=== PATIENT | male | born 1960 | race Hispanic/Latino ===

== ENCOUNTER → 2018-12-22 | Outpatient (CLI) | payer OTHER ==
[~2018-12-22] MED LIST: ASPI-1005 PO; ATOR20TA65 PO; CALC-483 PO; FISH OIL PO; IOHEXOL 350 MG/ML 100ML INFUS..BTL IV ONE; LOSA25TA41 PO; METO25 PO; MULT-1259 PO; NITR0.4T SL; PRAS10TA6 PO
== END | disposition home or self-care (01) ==
LOC: RAH 08:24
PROVIDERS: ATTEND Family Medicine
DX: I77.811 Abdominal aortic ectasia (principal); N20.0 Calculus of kidney; N28.1 Cyst of kidney, acquired; M25.78 Osteophyte, vertebrae; K59.00 Constipation, unspecified; I70.0 Atherosclerosis of aorta; Z90.49 Acquired absence of other specified parts of digestive tract
CPT/HCPCS: 74174; Q9967

== ENCOUNTER 2021-01-06 10:57 | Observation (INO) | payer OTHER ==
[~2021-01-06] VITALS: Ht 175.3 cm; Wt 87.3 kg
[~2021-01-06 10:57] MED LIST changes: +ATEN25TA PO; -ATOR20TA65 PO; -IOHEXOL 350 MG/ML 100ML INFUS..BTL IV ONE; -LOSA25TA41 PO; -METO25 PO; -PRAS10TA6 PO; +ROSU20TA31 PO; +TICA60TA PO
[2021-01-06 11:13] LABS: BASOPHILS % (AUTO) 0.3 % (0.0-5.0); EOSINOPHILS % (AUTO) 0.1 % (0.0-8.0); HEMATOCRIT 45.3 % (42-54); LYMPHOCYTES % (AUTO) 20.2 % (21.0-51.0); MEAN CORPUSCULAR HGB CONC 34.7 g/dL (32.0-36.0); MEAN CORPUSCULAR VOLUME 89.5 fL (79-99); MONOCYTES % (AUTO) 9.3 % (3.0-13.0); PLATELET COUNT (AUTO) 234 K/uL (130-400); RED BLOOD CELL COUNT(AUTO) 5.06 MIL/uL (4.50-6.20); RED CELL DISTRIBUTION WIDTH 13.2 % (11.0-15.5); WHITE BLOOD COUNT (AUTO) 7.2 K/uL (4.8-10.8)
[2021-01-06 11:21] LABS: POTASSIUM 3.9 mmol/L (3.5-5.1)
[2021-01-06 11:26] LABS: BILIRUBIN,TOTAL 1.9 mg/dL (0.2-1.0); TOTAL PROTEIN, SERUM 7.6 g/dL (6.0-8.3)
[2021-01-06 11:35] LABS: B-TYPE NATRIURETIC PEPTIDE 38 pg/mL (0-100)
[2021-01-06] MEDS ORDERED: ASPIRIN 325MG TAB PO ONE (12:30)
[2021-01-06] MEDS: NITROGLYCERIN 1GM OINT 1 INCH/1GM TD SCH ×5 (12:42→21:30)
[2021-01-06] MEDS ORDERED: ONDANSETRON 4MG INJ IV PRN (13:30)
[2021-01-06] MEDS ORDERED: LACTULOSE 20 GM/30 ML UDCUP PO PRN (13:30)
[2021-01-06] MEDS ORDERED: ACETAMINOPHEN 325 MG TAB PO PRN ×2 (13:30)
[2021-01-06 13:38] LABS: INR 1.05 (0.85-1.15); PROTHROMBIN TIME 11.4 SEC (9.6-11.6)
[2021-01-06 13:39] LABS: PARTIAL THROMBOPLASTIN TIME 27.3 SEC (26.3-35.5)
[2021-01-06 13:47] LABS: THYROID STIMULATING HORMONE 4.73 uIU/mL (0.36-3.74)
[2021-01-06 14:13] LABS: HEMOGLOBIN A1C 5.4 % (4.0-6.0)
[2021-01-06 18:38] VITALS: BP 141/83
[2021-01-06] MEDS ORDERED: OMEG-148 PO (19:57)
[2021-01-06] MEDS ORDERED: ATEN25TA PO (19:57)
[2021-01-06] MEDS ORDERED: TICA60TA PO (19:57)
[2021-01-06] MEDS ORDERED: ROSU20TA31 PO (19:57)
[2021-01-06] MEDS ORDERED: CALC-190 PO (19:57)
[2021-01-06] MEDS ORDERED: MULT-462 PO (19:57)
[2021-01-06] MEDS ORDERED: ASPI-1197 PO (19:57)
[2021-01-06 20:00] VITALS: BP 147/86
[2021-01-06 20:23] LABS: APPEARANCE,URINE Clear (CLEAR); BILIRUBIN,URINE Negative (NEGATIVE); COLOR,URINE Yellow (YELLOW); GLUCOSE, URINE (UA) Negative (NEGATIVE); KETONES,URINE Negative (NEGATIVE); LEUKOCYTE ESTERASE ,URINE Negative (NEGATIVE); NITRATE,URINE Negative (NEGATIVE); OCCULT BLOOD,URINE Negative (NEGATIVE); PH,URINE 6.5 (5.0-8.0); PROTEIN,URINE Negative (NEGATIVE)
[2021-01-06] MEDS: FAMOTIDINE 20MG TAB PO SCH (21:00)
[2021-01-06] MEDS ORDERED: ATORVASTATIN 20 MG TABLET PO SCH (21:00)
[2021-01-06] MEDS: METOPROLOL TARTRATE 25 MG TAB PO SCH (21:00)
[2021-01-06 23:42] VITALS: BP 134/81
[2021-01-07] MEDS: NITROGLYCERIN 1GM OINT 1 INCH/1GM TD SCH ×4 (03:49→14:00)
[2021-01-07 03:56] VITALS: BP 122/75
[2021-01-07 04:34] LABS: BASOPHILS % (AUTO) 0.5 % (0.0-5.0); EOSINOPHILS % (AUTO) 0.5 % (0.0-8.0); HEMATOCRIT 43.4 % (42-54); LYMPHOCYTES % (AUTO) 27.1 % (21.0-51.0); MEAN CORPUSCULAR HEMOGLOBIN 30.3 pg (27.0-33.0); MEAN CORPUSCULAR HGB CONC 33.9 g/dL (32.0-36.0); MEAN CORPUSCULAR VOLUME 89.5 fL (79-99); MONOCYTES % (AUTO) 12.5 % (3.0-13.0); NEUTROPHILS % (AUTO) 59.2 % (40.0-77.0); PLATELET COUNT (AUTO) 234 K/uL (130-400); RED BLOOD CELL COUNT(AUTO) 4.85 MIL/uL (4.50-6.20); RED CELL DISTRIBUTION WIDTH 13.2 % (11.0-15.5); WHITE BLOOD COUNT (AUTO) 8.2 K/uL (4.8-10.8)
[2021-01-07 04:44] LABS: POTASSIUM 3.8 mmol/L (3.5-5.1)
[2021-01-07 08:00] VITALS: BP 110/73
[2021-01-07] MEDS: FAMOTIDINE 20MG TAB PO SCH (08:56)
[2021-01-07] MEDS: METOPROLOL TARTRATE 25 MG TAB PO SCH (08:56)
[2021-01-07] MEDS ORDERED: ENOXAPARIN SODIUM 40 MG/0.4 ML SYRINGE SQ SCH (09:00)
[2021-01-07] MEDS ORDERED: ASPIRIN 81 MG EC TAB PO SCH (09:00)
[2021-01-07] MEDS ORDERED: BRILINTA 60 MG PO SCH (09:00)
[2021-01-07 12:00] VITALS: BP 135/77
[2021-01-07] MEDS ORDERED: PANTOPRAZOLE 40 MG TAB DR PO SCH (13:00)
[2021-01-07] MEDS ORDERED: PANT20TA18 PO (13:01)
== END 2021-01-07 20:47 | disposition home or self-care (01) ==
LOC: EDH 10:57 → EDHIP 13:02 → 4CH 19:25
PROVIDERS: ADMIT Hospitalist; ATTEND Hospitalist
DX: R07.89 Other chest pain (principal); I10 Essential (primary) hypertension; I51.9 Heart disease, unspecified; E78.5 Hyperlipidemia, unspecified; I25.10 Atherosclerotic heart disease of native coronary artery without angina pectoris; I21.3 ST elevation (STEMI) myocardial infarction of unspecified site; K21.9 Gastro-esophageal reflux disease without esophagitis; E03.8 Other specified hypothyroidism; I25.2 Old myocardial infarction; Z90.49 Acquired absence of other specified parts of digestive tract; Z79.82 Long term (current) use of aspirin; Z79.899 Other long term (current) drug therapy; Z98.890 Other specified postprocedural states; Z95.1 Presence of aortocoronary bypass graft; Z98.61 Coronary angioplasty status
CPT/HCPCS: 36415 ×2; 71045; 80048; 80053; 80061; 81003; 83036; 83880; 84439; 84443; 84484 ×3; 85025 ×2; 85378; 85610; 85730; 93005 ×3; 96372; 99285; G0378 ×32; J1650